=== PATIENT | female | born 1990 | race American Indian/Alaskan Native ===

== ENCOUNTER 2017-01-17 07:10 | Inpatient (IN) | payer MEDICAID ==
[2017-01-17] MEDS ORDERED: Misoprostol 50 MCG (1/2 of 100 MCG) Tab VAG ONE ×2 (07:55→17:45)
[2017-01-17] MEDS ORDERED: fentaNYL 100 MCG/2 ML SDV IVPUSH PRN (08:06)
[2017-01-17] MEDS ORDERED: Acetaminophen 325 MG Tab PO PRN ×2 (08:06→23:44)
[2017-01-17] MEDS ORDERED: Sodium Chloride 0.9% 10 ML Syringe FLUSH PRN (08:06)
[2017-01-17] MEDS ORDERED: Ondansetron 4 MG Tab.DIS PO PRN (08:06)
--- NOTE | 2017-01-17 08:21 | PCM.LDHP ---
L&D History of Present Illness - General Date of Service: 01/17/17 (induction) Admit Problem/Dx: Patient Status Order with Admit Dx/Problem 01/17/17 08:06 Patient Status [ADT] Routine Admission Diagnosis/Problem Admission Diagnosis/Problem Source of Information: Patient History Limitations: Reports: No Limitations - History of Present Illness Introduction:: This 26 year old who is 41 1 /7 weeks gestation presents for induction post dates. Has had minimal cares, missed several visits. Tested pos for THC in the first trimester. Lans: GBS neg ABO A pos Rubella immune HIV negative UDS negative today HGB 12.2., PLT 367 - Related Data Allergies/Adverse Reactions: Allergies Allergy/AdvReac Type Severity Reaction Status Date / Time codeine Allergy Hives Verified 06/21/16 18:56 Home Medications: Home Meds PNV95/Ferrous Fumarate/FA [ Vitamin Tablet] 1 tab PO DAILY 06/21/16 [ History] Past Medical History - Past Health History Medical/Surgical History: Denies Medical/Surgical History [employer] History: Reports: , Other (See Below) : 6 Para: 1 LMP (Approximate): (KAREN 01/09/17) Other OB/BYN History: D&C x 3 - Infectious Disease History Infectious Disease History: Reports: Chicken Pox - Past Surgical History Female Surgical History: Reports: D&C Social & Family History - Tobacco Use Smoking Status *Q: Never Smoker Second Hand Smoke Exposure: No - Caffeine Use Caffeine Use: Reports: Coffee - Recreational Drug Use Recreational Drug Use: No - Living Situation & Occupation Living situation: Reports: , with Family H&P Review of Systems - Review of Systems: Review Of Systems: See Below General: Reports: No Symptoms HEENT: Reports: No Symptoms Pulmonary: Reports: No Symptoms Cardiovascular: Reports: No Symptoms Gastrointestinal: Reports: No Symptoms Genitourinary: Reports: No Symptoms Musculoskeletal: Reports: No Symptoms Skin: Reports: No Symptoms Psychiatric: Reports: No Symptoms Neurological: Reports: No Symptoms Hematologic/Lymphatic: Reports: No Symptoms Immunologic: Reports: No Symptoms L&D Exam - Exam Exam: See Below - Vital Signs Weight: 172 lb 2.896 oz - OB Specific Fundal Height In cm: 39 Movement: Active Heart Tones: Present Heart Tones per Min: 145 Heart Rate (FHR) Variability: Moderate (6-25 bmp) Presentation: Vertex Estimated Weight: 7 pounds - Barry Score Barry Score Cervix Position: Posterior Barry Score Consistency: Soft Barry Score Effacement: 51-70% Barry Score Dilation: 1-2 cm Barry Score 's Station: -1 ,0 Barry Score Total: 7 - Exam General: Alert, Oriented HEENT: PERRLA, Conjunctiva Clear, EACs Clear, EOMI, Hearing Intact, Mucosa Moist & [place], Posterior Pharynx Clear, Pupils Equal, Pupils Reactive, TMs Clear Neck: Supple, Trachea Midline Lungs: Clear to Auscultation, Normal Respiratory Effort Cardiovascular: Regular Rate, Regular Rhythm Abdomen: Soft, Pelvis Stable Rectal Exam: Normal Exam Genitourinary: Normal external exam, Cervical dilitation, Enlarged uterus Back Exam: Normal Inspection, Full Range of Motion Extremities: Normal Inspection Skin: Warm, Dry, Intact Neurological: Cranial Nerves Intact, Reflexes Equal Bilateral Psychiatric: Alert, Normal Affect, Normal Mood - Patient Data Lab Results last 24 hrs: Laboratory Results - last 24 hr 01/17/17 01/17/17 01/17/17 Range/Units 07:21 07:26 07:26 WBC 10.9 (4.5-11.0) K/uL RBC 4.45 (3.30-5.50) M/uL Hgb 12.2 (12.0-15.0) g/dL Hct 36.4 (36.0-48.0) % MCV 82 (80-98) fL MCH 27 (27-31) pg MCHC 34 (32-36) % Plt Count 367 (150-400) K/uL Urine Color Yellow Urine Appearance Clear Urine pH 7.0 (4.5-8.0) Ur Specific [place] 1.005 L (1.008-1.030) Urine Protein Negative (NEGATIVE) mg/dL Urine Glucose (UA) Normal (NEGATIVE) mg/dL Urine Ketones Negative (NEGATIVE) mg/dL Urine Occult Blood Negative (NEGATIVE) Urine Nitrite Negative (NEGATIVE) Urine Bilirubin Negative (NEGATIVE) Urine Urobilinogen Normal (NORMAL) mg/dL Ur Leukocyte Esterase Negative (NEGATIVE) Urine RBC 0-5 (0-5) Urine WBC 0-5 (0-5) Ur Epithelial Cells Many Amorphous Sediment Not seen Urine Bacteria Not seen Urine Mucus Not seen Urine Opiates Screen Negative (NEGATIVE) Ur Oxycodone Screen Negative (NEGATIVE) Urine Methadone Screen Negative (NEGATIVE) Ur Propoxyphene Screen Negative (NEGATIVE) Ur Barbiturates Screen Negative (NEGATIVE) Ur Tricyclics Screen Negative (NEGATIVE) Ur Phencyclidine Scrn Negative (NEGATIVE) Ur Amphetamine Screen Negative (NEGATIVE) U Methamphetamines Scrn Negative (NEGATIVE) Urine MDMA Screen Negative (NEGATIVE) U Benzodiazepines Scrn Negative (NEGATIVE) U Cocaine Metab Screen Negative (NEGATIVE) U Marijuana (THC) Screen Negative (NEGATIVE) Result Diagrams: 01/17/17 07:21 - Problem List (1) Currently SNOMED Code(s): 24110791 ICD Code: Z33.1 - STATE, INCIDENTAL Status: Acute Priority: High Current Visit: No Qualifiers: Weeks of gestation: 41 weeks Qualified Code(s): Z3A.41 - 41 weeks gestation of Problem List Initiated/Reviewed/Updated: Yes Orders Last 24hrs: Active Orders 24 hr Category Date Time Status Antiembolic Devices [RC] .Routine Care 01/17/17 08:09 Ordered Communication Order [RC] ASDIRECTED Care 01/17/17 08:06 Ordered Heart Tones [RC] PER UNIT ROUTINE Care 01/17/17 08:06 Ordered May Shower [RC] ASDIRECTED Care 01/17/17 08:06 Ordered Notify Provider Vital Signs [RC] PRN Care 01/17/17 08:06 Ordered Notify Provider [RC] PRN Care 01/17/17 08:06 Ordered Up ad Leann [RC] ASDIRECTED Care 01/17/17 08:06 Ordered VTE/DVT Education [RC] Click to Edit Care 01/17/17 08:09 Ordered Vital Signs [RC] PER UNIT ROUTINE Care 01/17/17 08:06 Ordered Regular Diet [DIET] Diet 01/17/17 Breakfast Ordered Acetaminophen [Tylenol] Med 01/17/17 08:06 Ordered 650 mg PO Q4H PRN Ondansetron [Zofran ODT] Med 01/17/17 08:06 Ordered 4 mg PO Q4H PRN Oxytocin/Normal Saline [Pitocin in NS 20 Units/1,000 ML Med 01/17/17 08:15 Ordered ] 1,000 ml IV TITRATE Sodium Chloride 0.9% [Saline Flush] Med 01/17/17 08:06 Ordered 10 ml FLUSH ASDIRECTED PRN fentaNYL [Sublimaze] Med 01/17/17 08:06 Ordered 100 mcg IVPUSH Q1H PRN DVT/VTE Prophylaxis Reflex [OM.PC] Routine Oth 01/17/17 08:06 Ordered Saline Lock Insert [OM.PC] Routine Oth 01/17/17 08:06 Ordered Resuscitation Status Routine Resus Stat 01/17/17 08:06 Ordered Medication Orders Acetaminophen (Tylenol) 650 mg PO Q4H PRN PRN Reason: Pain (Mild 1-3) and fever Fentanyl (Sublimaze) 100 mcg IVPUSH Q1H PRN PRN Reason: Pain (moderate 4-6) Oxytocin/Sodium Chloride (Pitocin In Ns 20 Units/1,000 Ml) 1,000 mls @ 6 mls/ hr IV TITRATE FROILAN; 2 MUNITS/MIN PRN Reason: Protocol Ondansetron HCl (Zofran Odt) 4 mg PO Q4H PRN PRN Reason: Nausea/Vomiting Sodium Chloride (Saline Flush) 10 ml FLUSH ASDIRECTED PRN PRN Reason: Keep Vein Open Assessment/Plan Comment:: 01/17/17 26 year old 41 1/7 weeks gestation presents for induction post dates misoprostol 50 mcg vaginally this morning, may repeat at noon. reactive NST this morning Labs: GBS negative, UDS negative, Rubella immune, HIV negative,ABO A pos HGB 12.2, PLT 367 planning vaginal delivery she would like to do this without an epidural, so plan is for IV medication and tub Her significant other has to care for the 3 year old son and she may be by herself today
[2017-01-17] MEDS ORDERED: Lidocaine 1% 50 ML MDV ONE (11:09)
[2017-01-17] MEDS ORDERED: Naloxone 0.4 MG/ML SDV ONE (11:09)
[2017-01-17] MEDS ORDERED: Misoprostol 25 MCG (1/4 of 100 MCG) Tab ONE (12:17)
--- NOTE | 2017-01-17 12:29 | PCM.PNLD ---
Labor Progress Note - VS & Meds Vital Signs: Last Vital Signs Temp 97.5 F 01/17/17 11:25 Pulse 68 01/17/17 11:25 Resp 18 01/17/17 11:25 BP 121/72 01/17/17 11:25 Pulse Ox Active Medications: Current Medications Acetaminophen (Tylenol) 650 mg PO Q4H PRN PRN Reason: Pain (Mild 1-3) and fever Fentanyl (Sublimaze) 100 mcg IVPUSH Q1H PRN PRN Reason: Pain (moderate 4-6) Oxytocin/Sodium Chloride (Pitocin In Ns 20 Units/1,000 Ml) 20 unit in 1,000 mls @ 6 mls/hr IV TITRATE FROILAN; 2 MUNITS/MIN PRN Reason: Protocol Misoprostol (Cytotec) 25 mcg VAG ONETIME FROILAN Ondansetron HCl (Zofran Odt) 4 mg PO Q4H PRN PRN Reason: Nausea/Vomiting Sodium Chloride (Saline Flush) 10 ml FLUSH ASDIRECTED PRN PRN Reason: Keep Vein Open Discontinued Medications Oxytocin/Sodium Chloride (Pitocin In Ns 20 Units/1,000 Ml) Confirm Administered Dose 20 unit in 1,000 mls @ as directed .ROUTE .STK-MED ONE Stop: 01/17/17 11:10 Lidocaine HCl (Xylocaine 1%) Confirm Administered Dose 100 ml .ROUTE .STK-MED ONE Stop: 01/17/17 11:10 Misoprostol (Cytotec) 50 mcg VAG ONETIME ONE Stop: 01/17/17 07:56 Last Admin: 01/17/17 08:00 Dose: 50 mcg Misoprostol (Cytotec) Confirm Administered Dose 25 mcg .ROUTE .STK-MED ONE Stop: 01/17/17 12:18 Naloxone HCl (Narcan) Confirm Administered Dose 0.4 mg .ROUTE .STK-MED ONE Stop: 01/17/17 11:10 - Uterine Contractions Uterine Monitoring Mode: External [place] Contraction Frequency (min): 2.5-4.5 Contraction Duration (sec): 60-80 Contraction Intensity: Mild Uterine Resting Tone: Soft - Monitoring Heart Rate (FHR) Baseline: 140 Heart Rate (FHR) Variability: Moderate (6-25 bmp) Accelerations: Present, 15x15 Decelerations: None - Vaginal Exam Dilation (cm): 2 Effacement (Percent): 50 Station: 0 Cervical Position: Posterior Sterile Vaginal Exam Performed By: Jazmin Bentley Vaginal Exam Comment: placed cytotec vag. - Labor Progress (Free Text) Labor Progress: 01/17/17 no cervical change lorraine some continue up and about.
[2017-01-17] MEDS ORDERED: Misoprostol 25 MCG (1/4 of 100 MCG) Tab VAG ONE (12:30)
[2017-01-17] MEDS ORDERED: Misoprostol 50 MCG (1/2 of 100 MCG) Tab ONE (17:32)
--- NOTE | 2017-01-17 17:43 | PCM.PNLD ---
Labor Progress Note - VS & Meds Vital Signs: Last Vital Signs Temp 96.2 F 01/17/17 14:20 Pulse 67 01/17/17 14:20 Resp 18 01/17/17 16:00 BP 118/77 01/17/17 16:00 Pulse Ox Active Medications: Current Medications Acetaminophen (Tylenol) 650 mg PO Q4H PRN PRN Reason: Pain (Mild 1-3) and fever Fentanyl (Sublimaze) 100 mcg IVPUSH Q1H PRN PRN Reason: Pain (moderate 4-6) Oxytocin/Sodium Chloride (Pitocin In Ns 20 Units/1,000 Ml) 20 unit in 1,000 mls @ 6 mls/hr IV TITRATE FROILAN; 2 MUNITS/MIN PRN Reason: Protocol Misoprostol (Cytotec) 50 mcg VAG ONETIME FROILAN Ondansetron HCl (Zofran Odt) 4 mg PO Q4H PRN PRN Reason: Nausea/Vomiting Sodium Chloride (Saline Flush) 10 ml FLUSH ASDIRECTED PRN PRN Reason: Keep Vein Open Discontinued Medications Oxytocin/Sodium Chloride (Pitocin In Ns 20 Units/1,000 Ml) Confirm Administered Dose 20 unit in 1,000 mls @ as directed .ROUTE .STK-MED ONE Stop: 01/17/17 11:10 Last Admin: 01/17/17 12:32 Dose: Not Given Lidocaine HCl (Xylocaine 1%) Confirm Administered Dose 100 ml .ROUTE .STK-MED ONE Stop: 01/17/17 11:10 Misoprostol (Cytotec) 50 mcg VAG ONETIME ONE Stop: 01/17/17 07:56 Last Admin: 01/17/17 08:00 Dose: 50 mcg Misoprostol (Cytotec) 25 mcg VAG ONETIME ONE Stop: 01/17/17 12:31 Last Admin: 01/17/17 12:20 Dose: 25 mcg Misoprostol (Cytotec) Confirm Administered Dose 25 mcg .ROUTE .STK-MED ONE Stop: 01/17/17 12:18 Last Admin: 01/17/17 12:30 Dose: Not Given Misoprostol (Cytotec) Confirm Administered Dose 50 mcg .ROUTE .STK-MED ONE Stop: 01/17/17 17:33 Naloxone HCl (Narcan) Confirm Administered Dose 0.4 mg .ROUTE .STK-MED ONE Stop: 01/17/17 11:10 - Uterine Contractions Uterine Monitoring Mode: External [place] Contraction Frequency (min): unable to determine Contraction Duration (sec): 60-100 Contraction Intensity: Mild to Moderate Uterine Resting Tone: Soft - Monitoring Heart Rate (FHR) Baseline: 140 Heart Rate (FHR) Variability: Moderate (6-25 bmp) Accelerations: Present, 15x15 Decelerations: None - Vaginal Exam Dilation (cm): 3 Effacement (Percent): 50 Station: 0 Cervical Position: Posterior Sterile Vaginal Exam Performed By: Jazmin Bentley Vaginal Exam Comment: placed cytotec vag. - Labor Progress (Free Text) Labor Progress: contractions are becoming stronger, not much for cervical change. Baseline FHT 140's CE 3-50-0 repeat 50 mcg misoprostol vaginally. May use pitocin to augment if needed.
--- NOTE | 2017-01-17 21:24 | PCM.PNLD ---
Labor Progress Note - VS & Meds Vital Signs: Last Vital Signs Temp 97.1 F 01/17/17 19:30 Pulse 72 01/17/17 19:30 Resp 20 01/17/17 19:30 BP 139/80 01/17/17 19:30 Pulse Ox 98 01/17/17 19:30 Active Medications: Current Medications Acetaminophen (Tylenol) 650 mg PO Q4H PRN PRN Reason: Pain (Mild 1-3) and fever Fentanyl (Sublimaze) 100 mcg IVPUSH Q1H PRN PRN Reason: Pain (moderate 4-6) Last Admin: 01/17/17 21:03 Dose: 100 mcg Oxytocin/Sodium Chloride (Pitocin In Ns 20 Units/1,000 Ml) 20 unit in 1,000 mls @ 6 mls/hr IV TITRATE FROILAN; 2 MUNITS/MIN PRN Reason: Protocol Ondansetron HCl (Zofran Odt) 4 mg PO Q4H PRN PRN Reason: Nausea/Vomiting Sodium Chloride (Saline Flush) 10 ml FLUSH ASDIRECTED PRN PRN Reason: Keep Vein Open Discontinued Medications Oxytocin/Sodium Chloride (Pitocin In Ns 20 Units/1,000 Ml) Confirm Administered Dose 20 unit in 1,000 mls @ as directed .ROUTE .STK-MED ONE Stop: 01/17/17 11:10 Last Admin: 01/17/17 12:32 Dose: Not Given Lidocaine HCl (Xylocaine 1%) Confirm Administered Dose 100 ml .ROUTE .STK-MED ONE Stop: 01/17/17 11:10 Misoprostol (Cytotec) 50 mcg VAG ONETIME ONE Stop: 01/17/17 07:56 Last Admin: 01/17/17 08:00 Dose: 50 mcg Misoprostol (Cytotec) 25 mcg VAG ONETIME ONE Stop: 01/17/17 12:31 Last Admin: 01/17/17 12:20 Dose: 25 mcg Misoprostol (Cytotec) Confirm Administered Dose 25 mcg .ROUTE .STK-MED ONE Stop: 01/17/17 12:18 Last Admin: 01/17/17 12:30 Dose: Not Given Misoprostol (Cytotec) Confirm Administered Dose 50 mcg .ROUTE .STK-MED ONE Stop: 01/17/17 17:33 Last Admin: 01/17/17 17:39 Dose: Not Given Misoprostol (Cytotec) 50 mcg VAG ONETIME ONE Stop: 01/17/17 17:46 Last Admin: 01/17/17 17:35 Dose: 50 mcg Naloxone HCl (Narcan) Confirm Administered Dose 0.4 mg .ROUTE .STK-MED ONE Stop: 01/17/17 11:10 - Uterine Contractions Uterine Monitoring Mode: External [place] Contraction Frequency (min): 2.5-3 Contraction Duration (sec): 60-80 Contraction Intensity: Moderate Uterine Resting Tone: Soft - Monitoring Heart Rate (FHR) Baseline: 140 Heart Rate (FHR) Variability: Moderate (6-25 bmp) Accelerations: Present, 15x15 Decelerations: None Strip Review: Category I - Vaginal Exam Dilation (cm): 7 Effacement (Percent): 85 Station: 1 Cervical Position: Anterior Sterile Vaginal Exam Performed By: Opal Rodriguez Vaginal Exam Comment: active labor, SROM clear fluid - Labor Progress (Free Text) Labor Progress: 01/17/17 Progressing Planning for vaginal delivery
[2017-01-17] MEDS ORDERED: Docusate Sodium 100 MG Cap PO PRN (23:44)
[2017-01-17] MEDS ORDERED: Lanolin 100% Cream 40 GM Tube TOP PRN (23:44)
[2017-01-17] MEDS ORDERED: Ibuprofen 600 MG Tab PO PRN ×2 (23:44)
--- NOTE | 2017-01-17 23:58 | PCM.DEL ---
L & D Note - General Info Date of Service: 01/17/17 (delivery) Mother's Due Date: 01/09/17 - Delivery Note Labor: spontaneous Cervical Ripening Method: Misoprostil Delivery Outcome: Livebirth Infant Delivery Method: Spontaneous Vaginal Delivery Delivery Mode: Spontaneous Presentation: Right Occiput Posterior (ROP) Nuchal cord: present, reduced Anesthesia Type: None Amniotic Fluid Description: Clear Episiotomy Type: None Laceration: none Placenta: intact, spontaneous Cord: 3 vessels Estimated blood loss: 100 Resuscitation needed: No : bulb syringe, stimulated, warmed, blanket used Provider: Jazmin Bentley Score 1 min: 9 Score 5 min: 9 Score 10 min: 9 Second Stage Interventions: Reports: Encouragement Given, Pushing Effectively, Pushing, Feet in Foot Rests, Pushing, McRobert's Position Delivery Comments (Free Text/Narrative):: This 26year old G6 P now 2 who is 41 1/7 weeks gestation delivered a viable male infant over an intact perineum at 2320. 5 pushes! , ROP, nuchal cord times one manual reduced. Apgars 9,9,9. three vessel cord. Baby was placed on mother's abdomen where he cried spontaneously. He was dried and stimulated. The placenta was expressed spontaneously intact, katelyn. Active management of the third stage was used. No lacerations of the cervix, vagina, rectum or perineum were found. EBL 100cc Weight 8-10 Mother and baby to post and nursery in stable condition [place] to breast within the first hour of life. First stage 3493-6987 Second stage 225- 2320 third stage 0460-4044 Induction Criteria - Barry Score Barry Score Dilation: 1-2 cm Barry Score Effacement: 40-50% Barry Score 's Station: -1 ,0 Barry Score Consistency: Soft Barry Score Cervix Position: Posterior Barry Score Total: 6 Barry Score Presenting Part: Reports: Cephalic - Induction Gestational Age >/= 39 wks: Yes Estimated pelvis: Reports: Adequate Reassuring monitoring strip: Yes Absence of tachy systole: Yes - General Info Date of Service: 01/17/17 Admission Dx/Problem (Free Text): Patient Status Order with Admit Dx/Problem 01/17/17 08:06 Patient Status [ADT] Routine Admission Diagnosis/Problem Admission Diagnosis/Problem Functional Status: Reports: pain controlled - Review of Systems General: Reports: No Symptoms HEENT: Reports: no symptoms Pulmonary: Reports: no symptoms Cardiovascular: Reports: No Symptoms Gastrointestinal: Reports: No symptoms Genitourinary: Reports: no symptoms Musculoskeletal: Reports: no symptoms Skin: Reports: no symptoms Neurological: Reports: No Symptoms Psychiatric: Reports: no symptoms - Patient Data Vitals - most recent: Last Vital Signs Temp 97.1 F 01/17/17 19:30 Pulse 72 01/17/17 19:30 Resp 20 01/17/17 19:30 BP 139/80 01/17/17 19:30 Pulse Ox 98 01/17/17 19:30 Weight - most recent: 172 lb 2.896 oz Lab Results last 24 hrs: Laboratory Results - last 24 hr 01/17/17 01/17/17 01/17/17 Range/Units 07:21 07:26 07:26 WBC 10.9 (4.5-11.0) K/uL RBC 4.45 (3.30-5.50) M/uL Hgb 12.2 (12.0-15.0) g/dL Hct 36.4 (36.0-48.0) % MCV 82 (80-98) fL MCH 27 (27-31) pg MCHC 34 (32-36) % Plt Count 367 (150-400) K/uL Urine Color Yellow Urine Appearance Clear Urine pH 7.0 (4.5-8.0) Ur Specific [place] 1.005 L (1.008-1.030) Urine Protein Negative (NEGATIVE) mg/dL Urine Glucose (UA) Normal (NEGATIVE) mg/dL Urine Ketones Negative (NEGATIVE) mg/dL Urine Occult Blood Negative (NEGATIVE) Urine Nitrite Negative (NEGATIVE) Urine Bilirubin Negative (NEGATIVE) Urine Urobilinogen Normal (NORMAL) mg/dL Ur Leukocyte Esterase Negative (NEGATIVE) Urine RBC 0-5 (0-5) Urine WBC 0-5 (0-5) Ur Epithelial Cells Many Amorphous Sediment Not seen Urine Bacteria Not seen Urine Mucus Not seen Urine Opiates Screen Negative (NEGATIVE) Ur Oxycodone Screen Negative (NEGATIVE) Urine Methadone Screen Negative (NEGATIVE) Ur Propoxyphene Screen Negative (NEGATIVE) Ur Barbiturates Screen Negative (NEGATIVE) Ur Tricyclics Screen Negative (NEGATIVE) Ur Phencyclidine Scrn Negative (NEGATIVE) Ur Amphetamine Screen Negative (NEGATIVE) U Methamphetamines Scrn Negative (NEGATIVE) Urine MDMA Screen Negative (NEGATIVE) U Benzodiazepines Scrn Negative (NEGATIVE) U Cocaine Metab Screen Negative (NEGATIVE) U Marijuana (THC) Screen Negative (NEGATIVE) Med Orders - Current: Current Medications Acetaminophen (Tylenol) 650 mg PO Q4H PRN PRN Reason: Pain (Mild 1-3) and fever Fentanyl (Sublimaze) 100 mcg IVPUSH Q1H PRN PRN Reason: Pain (moderate 4-6) Last Admin: 01/17/17 21:03 Dose: 100 mcg Oxytocin/Sodium Chloride (Pitocin In Ns 20 Units/1,000 Ml) 20 unit in 1,000 mls @ 6 mls/hr IV TITRATE FROILAN; 2 MUNITS/MIN PRN Reason: Protocol Ondansetron HCl (Zofran Odt) 4 mg PO Q4H PRN PRN Reason: Nausea/Vomiting Sodium Chloride (Saline Flush) 10 ml FLUSH ASDIRECTED PRN PRN Reason: Keep Vein Open Discontinued Medications Oxytocin/Sodium Chloride (Pitocin In Ns 20 Units/1,000 Ml) Confirm Administered Dose 20 unit in 1,000 mls @ as directed .ROUTE .STK-MED ONE Stop: 01/17/17 11:10 Last Admin: 01/17/17 12:32 Dose: Not Given Lidocaine HCl (Xylocaine 1%) Confirm Administered Dose 100 ml .ROUTE .STK-MED ONE Stop: 01/17/17 11:10 Misoprostol (Cytotec) 50 mcg VAG ONETIME ONE Stop: 01/17/17 07:56 Last Admin: 01/17/17 08:00 Dose: 50 mcg Misoprostol (Cytotec) 25 mcg VAG ONETIME ONE Stop: 01/17/17 12:31 Last Admin: 01/17/17 12:20 Dose: 25 mcg Misoprostol (Cytotec) Confirm Administered Dose 25 mcg .ROUTE .STK-MED ONE Stop: 01/17/17 12:18 Last Admin: 01/17/17 12:30 Dose: Not Given Misoprostol (Cytotec) Confirm Administered Dose 50 mcg .ROUTE .STK-MED ONE Stop: 01/17/17 17:33 Last Admin: 01/17/17 17:39 Dose: Not Given Misoprostol (Cytotec) 50 mcg VAG ONETIME ONE Stop: 01/17/17 17:46 Last Admin: 01/17/17 17:35 Dose: 50 mcg Naloxone HCl (Narcan) Confirm Administered Dose 0.4 mg .ROUTE .STK-MED ONE Stop: 01/17/17 11:10 - Exam General: alert, oriented HEENT: Pupils equal, Pupils reactive, EOMI, Mucous membr. moist/pink Neck: supple Lungs: Clear to auscultation, Normal respiratory effort Cardiovascular: Regular Rate, Regular Rhythm Abdomen: soft, no tenderness, no distension (Female) Exam: Normal External Exam, Normal Speculum Exam, Normal Bimanual Exam Back Exam: Normal Inspection, Full Range of Motion Skin: warm, dry, intact Wound/Incisions: healing well Neurological: no new focal deficit Psy/Mental Status: alert, normal affect, normal mood - Problem List & Annotations (1) Currently SNOMED Code(s): 34993935 Code(s): Z33.1 - STATE, INCIDENTAL Status: Acute Priority: High Current Visit: Yes Qualifiers: Weeks of gestation: 41 weeks Qualified Code(s): Z3A.41 - 41 weeks gestation of (2) () SNOMED Code(s): 653948256 Code(s): Z78.9 - OTHER SPECIFIED HEALTH STATUS Status: Acute Current Visit: Yes (3) Normal labor and delivery SNOMED Code(s): 89344326, 133639624 Code(s): O80 - ENCOUNTER FOR FULL-TERM UNCOMPLICATED DELIVERY Status: Acute Current Visit: Yes (4) Elective induction of labor planned SNOMED Code(s): 723362885 Code(s): AGG6451 - Status: Acute Current Visit: Yes - Problem List Review Problem List Initiated/Reviewed/Updated: Yes - My Orders Last 24 Hours: My Active Orders 01/17/17 08:06 Communication Order [RC] ASDIRECTED May Shower [RC] ASDIRECTED Notify Provider Vital Signs [RC] PRN Notify Provider [RC] PRN Up ad Leann [RC] ASDIRECTED Vital Signs [RC] PER UNIT ROUTINE Acetaminophen [Tylenol] 650 mg PO Q4H PRN Ondansetron [Zofran ODT] 4 mg PO Q4H PRN Sodium Chloride 0.9% [Saline Flush] 10 ml FLUSH ASDIRECTED PRN fentaNYL [Sublimaze] 100 mcg IVPUSH Q1H PRN DVT/VTE Prophylaxis Reflex [OM.PC] Routine Saline Lock Insert [OM.PC] Routine Resuscitation Status Routine 01/17/17 08:09 Antiembolic Devices [RC] .Routine VTE/DVT Education [RC] Click to Edit 01/17/17 08:15 Oxytocin/Normal Saline [Pitocin in NS 20 Units/1,000 ML] 20 unit in 1,000 ml IV TITRATE 01/17/17 23:44 Acetaminophen [Tylenol Bulk Bottle] 325 mg PO Q4H PRN Docusate Sodium [Colace] 100 mg PO BID PRN Ibuprofen [Motrin Bulk Bottle] 600 mg PO Q6H PRN Ibuprofen [Motrin] 600 mg PO Q6H PRN Lanolin [Lansinoh HPA] 1 gm TOP ASDIRECTED PRN Assess Lochia [WOMSER] Per Unit Routine Assess Uterine Involution [WOMSER] Per Unit Routine 01/17/17 23:45 Vital Signs [RC] PFP Ice Therapy [OM.PC] Per Unit Routine Perineal Care [OM.PC] Per Unit Routine Sitz Bath [OM.PC] Per Unit Routine 01/17/17 23:46 Peripheral IV Discontinue [OM.PC] Routine 01/17/17 Breakfast Regular Diet [DIET] 01/18/17 05:11 CBC WITH AUTO DIFF [HEME] AM - Assessment Assessment:: 01/17/17 26 year old without complications Male infant, breast feeding induction for post dates - Plan Plan:: 01/17/17 26 year old 41 1/7 weeks gestation presents for induction post dates misoprostol 50 mcg vaginally this morning, may repeat at noon. reactive NST this morning Labs: GBS negative, UDS negative, Rubella immune, HIV negative,ABO A pos HGB 12.2, PLT 367 planning vaginal delivery she would like to do this without an epidural, so plan is for IV medication and tub Her significant other has to care for the 3 year old son and she may be by herself today 01/17/17 Routine cares support 24-48 hour stay may use LAMINE medications
[2017-01-18] MEDS ORDERED: Acetaminophen 325 MG Tab, 50 Tab Bulk Bottle PO PRN (02:34)
[2017-01-18] MEDS ORDERED: Ibuprofen 200 MG Tab, 24 Tab Bulk Bottle PO PRN (02:37)
--- NOTE | 2017-01-18 08:58 | PCM.PNPP ---
- General Info Date of Service: 01/18/17 (PPD 1) Admission Dx/Problem (Free Text): Patient Status Order with Admit Dx/Problem 01/17/17 08:06 Patient Status [ADT] Routine Admission Diagnosis/Problem Admission Diagnosis/Problem Functional Status: Reports: pain controlled - Review of Systems General: Reports: No Symptoms HEENT: Reports: no symptoms Pulmonary: Reports: no symptoms Cardiovascular: Reports: No Symptoms Gastrointestinal: Reports: No symptoms Genitourinary: Reports: no symptoms Musculoskeletal: Reports: hand pain (right hand carpal tunnel symptoms, chronic but worse since IV was in that hand yesterday) Skin: Reports: no symptoms Neurological: Reports: No Symptoms Psychiatric: Reports: no symptoms - General Info Date of Service: 01/18/17 - Patient Data Vital Signs - most recent: Last Vital Signs Temp 98.4 F 01/18/17 02:11 Pulse 64 01/18/17 02:11 Resp 18 01/18/17 02:11 BP 110/53 L 01/18/17 02:11 Pulse Ox 96 01/18/17 02:11 Weight - most recent: 172 lb 2.896 oz I&O - last 24 hours: Intake & Output 01/17/17 01/18/17 01/18/17 22:59 06:59 14:59 Intake Total 400 2240 Balance 400 2240 Lab Results - last 24 hrs: Laboratory Results - last 24 hr 01/18/17 Range/Units 05:47 WBC 14.9 H (4.5-11.0) K/uL RBC 4.27 (3.30-5.50) M/uL Hgb 11.9 L (12.0-15.0) g/dL Hct 35.1 L (36.0-48.0) % MCV 82 (80-98) fL MCH 28 (27-31) pg MCHC 34 (32-36) % Plt Count 340 (150-400) K/uL Neut % (Auto) 86 H (36-66) % Lymph % (Auto) 9 L (24-44) % [place] % (Auto) 5 (2-6) % Eos % (Auto) 0 L (2-4) % Baso % (Auto) 0 (0-1) % Med Orders - Current: Current Medications Acetaminophen (Tylenol) 650 mg PO Q4H PRN PRN Reason: Pain (Mild 1-3) and fever Acetaminophen (Tylenol) 325 - 650 mg PO Q4H PRN PRN Reason: Pain Acetaminophen (Tylenol Bulk Bottle) 325 - 650 mg PO Q4H PRN PRN Reason: Pain Last Admin: 01/18/17 03:04 Dose: 325 mg Docusate Sodium (Colace) 100 mg PO BID PRN PRN Reason: Constipation Emollient Ointment (Lansinoh Hpa) 0 gm TOP ASDIRECTED PRN PRN Reason: Sore Nipples Fentanyl (Sublimaze) 100 mcg IVPUSH Q1H PRN PRN Reason: Pain (moderate 4-6) Last Admin: 01/17/17 21:03 Dose: 100 mcg Oxytocin/Sodium Chloride (Pitocin In Ns 20 Units/1,000 Ml) 20 unit in 1,000 mls @ 6 mls/hr IV TITRATE FROILAN; 2 MUNITS/MIN PRN Reason: Protocol Last Titration: 01/18/17 00:00 Dose: 125 mls/hr Ibuprofen (Motrin) 600 mg PO Q6H PRN PRN Reason: Pain Ibuprofen (Motrin Bulk Bottle) 200 - 600 mg PO Q6H PRN PRN Reason: Pain Last Admin: 01/18/17 03:05 Dose: 600 mg Ondansetron HCl (Zofran Odt) 4 mg PO Q4H PRN PRN Reason: Nausea/Vomiting Sodium Chloride (Saline Flush) 10 ml FLUSH ASDIRECTED PRN PRN Reason: Keep Vein Open Discontinued Medications Oxytocin/Sodium Chloride (Pitocin In Ns 20 Units/1,000 Ml) Confirm Administered Dose 20 unit in 1,000 mls @ as directed .ROUTE .STK-MED ONE Stop: 01/17/17 11:10 Last Admin: 01/17/17 12:32 Dose: Not Given Ibuprofen (Motrin) 600 mg PO Q6H PRN PRN Reason: mild pain or fever Lidocaine HCl (Xylocaine 1%) Confirm Administered Dose 100 ml .ROUTE .STK-MED ONE Stop: 01/17/17 11:10 Last Admin: 01/18/17 02:05 Dose: Not Given Misoprostol (Cytotec) 50 mcg VAG ONETIME ONE Stop: 01/17/17 07:56 Last Admin: 01/17/17 08:00 Dose: 50 mcg Misoprostol (Cytotec) 25 mcg VAG ONETIME ONE Stop: 01/17/17 12:31 Last Admin: 01/17/17 12:20 Dose: 25 mcg Misoprostol (Cytotec) Confirm Administered Dose 25 mcg .ROUTE .STK-MED ONE Stop: 01/17/17 12:18 Last Admin: 01/17/17 12:30 Dose: Not Given Misoprostol (Cytotec) Confirm Administered Dose 50 mcg .ROUTE .STK-MED ONE Stop: 01/17/17 17:33 Last Admin: 01/17/17 17:39 Dose: Not Given Misoprostol (Cytotec) 50 mcg VAG ONETIME ONE Stop: 01/17/17 17:46 Last Admin: 01/17/17 17:35 Dose: 50 mcg Naloxone HCl (Narcan) Confirm Administered Dose 0.4 mg .ROUTE .STK-MED ONE Stop: 01/17/17 11:10 Last Admin: 01/18/17 02:05 Dose: Not Given - Interaction Infant Disposition, : [place] in Room with Family Interaction: Holding Feeding: Breastfed Infant; Nursed Well Support Person: Significant Other - Recovery Exam Fundal Tone: Firm Fundal Level: 1 Fingerbreadths Below Umbilicus Fundal Placement: Midline Lochia Amount: Moderate Lochia Color: Rubra/Red Perineum Description: Intact, Minimal Bruising/Swelling Episiotomy/Laceration: None Urinary Elimination: Voided Other Urinary Elimination, : due to void. - Exam General: alert, oriented HEENT: Pupils equal Neck: supple Lungs: Clear to auscultation, Normal respiratory effort Cardiovascular: Regular Rate, Regular Rhythm Abdomen: bowel sounds present, soft, no tenderness, no distension Extremities: no edema Skin: warm, dry, intact Wound/Incisions: healing well Neurological: no new focal deficit Psy/Mental Status: alert, normal affect, normal mood - Problem List & Annotations (1) Currently SNOMED Code(s): 68755479 Code(s): Z33.1 - STATE, INCIDENTAL Status: Acute Priority: High Current Visit: Yes Qualifiers: Weeks of gestation: 41 weeks Qualified Code(s): Z3A.41 - 41 weeks gestation of (2) () SNOMED Code(s): 710350625 Code(s): Z78.9 - OTHER SPECIFIED HEALTH STATUS Status: Acute Current Visit: Yes (3) Normal labor and delivery SNOMED Code(s): 55492475, 505865551 Code(s): O80 - ENCOUNTER FOR FULL-TERM UNCOMPLICATED DELIVERY Status: Acute Current Visit: Yes (4) Elective induction of labor planned SNOMED Code(s): 214174161 Code(s): IDT1992 - Status: Acute Current Visit: Yes (5) Carpal tunnel syndrome of right wrist SNOMED Code(s): 53334950, 111809736 Code(s): G56.01 - CARPAL TUNNEL SYNDROME, RIGHT UPPER LIMB Status: Acute Current Visit: Yes - Problem List Review Problem List Initiated/Reviewed/Updated: Yes - My Orders Last 24 Hours: My Active Orders 01/17/17 08:06 May Shower [RC] ASDIRECTED Notify Provider Vital Signs [RC] PRN Up ad Leann [RC] ASDIRECTED Vital Signs [RC] PER UNIT ROUTINE Acetaminophen [Tylenol] 650 mg PO Q4H PRN Ondansetron [Zofran ODT] 4 mg PO Q4H PRN Sodium Chloride 0.9% [Saline Flush] 10 ml FLUSH ASDIRECTED PRN fentaNYL [Sublimaze] 100 mcg IVPUSH Q1H PRN DVT/VTE Prophylaxis Reflex [OM.PC] Routine Saline Lock Insert [OM.PC] Routine Resuscitation Status Routine 01/17/17 08:09 Antiembolic Devices [RC] .Routine VTE/DVT Education [RC] Click to Edit 01/17/17 08:15 Oxytocin/Normal Saline [Pitocin in NS 20 Units/1,000 ML] 20 unit in 1,000 ml IV TITRATE 01/17/17 23:44 Acetaminophen [Tylenol] 325 - 650 mg PO Q4H PRN Docusate Sodium [Colace] 100 mg PO BID PRN Ibuprofen [Motrin] 600 mg PO Q6H PRN Lanolin [Lansinoh HPA] 0 gm TOP ASDIRECTED PRN Assess Lochia [WOMSER] Per Unit Routine Assess Uterine Involution [WOMSER] Per Unit Routine 01/17/17 23:45 Ice Therapy [OM.PC] Per Unit Routine Perineal Care [OM.PC] Per Unit Routine Sitz Bath [OM.PC] Per Unit Routine 01/17/17 23:46 Peripheral IV Discontinue [OM.PC] Routine 01/17/17 Breakfast Regular Diet [DIET] 01/18/17 02:34 Acetaminophen [Tylenol Bulk Bottle] 325 - 650 mg PO Q4H PRN 01/18/17 02:37 Ibuprofen [Motrin Bulk Bottle] 200 - 600 mg PO Q6H PRN - Assessment Assessment:: 01/17/17 26 year old without complications Male , breast feeding induction for post dates 01/18/17 Doing well this morning HGB 11.9 this morning right hand painful, has carpal tunnel symptoms - Plan Plan:: 01/17/17 26 year old 41 1/7 weeks gestation presents for induction post dates misoprostol 50 mcg vaginally this morning, may repeat at noon. reactive NST this morning Labs: GBS negative, UDS negative, Rubella immune, HIV negative,ABO A pos HGB 12.2, PLT 367 planning vaginal delivery she would like to do this without an epidural, so plan is for IV medication and tub Her significant other has to care for the 3 year old son and she may be by herself today 01/17/17 Routine cares support 24-48 hour stay may use LAMINE medications 01/18/17 Continue routine cares Needs cock up splint right hand support breast feeding discharge tomorrow
--- NOTE | 2017-01-19 06:53 | PCM.PNPP ---
- General Info Date of Service: 01/19/17 (PPD 2 D/C) Admission Dx/Problem (Free Text): Patient Status Order with Admit Dx/Problem 01/17/17 08:06 Patient Status [ADT] Routine Admission Diagnosis/Problem Admission Diagnosis/Problem Functional Status: Reports: pain controlled - Review of Systems General: Reports: No Symptoms HEENT: Reports: no symptoms Pulmonary: Reports: no symptoms Cardiovascular: Reports: No Symptoms Gastrointestinal: Reports: No symptoms Genitourinary: Reports: no symptoms Musculoskeletal: Reports: no symptoms Skin: Reports: no symptoms Neurological: Reports: No Symptoms Psychiatric: Reports: no symptoms - General Info Date of Service: 01/19/17 - Patient Data Vital Signs - most recent: Last Vital Signs Temp 97.9 F 01/19/17 03:41 Pulse 74 01/19/17 03:41 Resp 16 01/19/17 03:41 BP 107/58 L 01/19/17 03:41 Pulse Ox 100 01/19/17 03:41 Weight - most recent: 202 lb 15.991 oz I&O - last 24 hours: Intake & Output 01/18/17 01/18/17 01/19/17 14:59 22:59 06:59 Intake Total 480 Balance 480 Med Orders - Current: Current Medications Acetaminophen (Tylenol) 650 mg PO Q4H PRN PRN Reason: Pain (Mild 1-3) and fever Acetaminophen (Tylenol) 325 - 650 mg PO Q4H PRN PRN Reason: Pain Acetaminophen (Tylenol Bulk Bottle) 325 - 650 mg PO Q4H PRN PRN Reason: Pain Last Admin: 01/18/17 03:04 Dose: 325 mg Docusate Sodium (Colace) 100 mg PO BID PRN PRN Reason: Constipation Emollient Ointment (Lansinoh Hpa) 0 gm TOP ASDIRECTED PRN PRN Reason: Sore Nipples Fentanyl (Sublimaze) 100 mcg IVPUSH Q1H PRN PRN Reason: Pain (moderate 4-6) Last Admin: 01/17/17 21:03 Dose: 100 mcg Oxytocin/Sodium Chloride (Pitocin In Ns 20 Units/1,000 Ml) 20 unit in 1,000 mls @ 6 mls/hr IV TITRATE FROILAN; 2 MUNITS/MIN PRN Reason: Protocol Last Titration: 01/18/17 00:00 Dose: 125 mls/hr Ibuprofen (Motrin) 600 mg PO Q6H PRN PRN Reason: Pain Ibuprofen (Motrin Bulk Bottle) 200 - 600 mg PO Q6H PRN PRN Reason: Pain Last Admin: 01/18/17 03:05 Dose: 600 mg Ondansetron HCl (Zofran Odt) 4 mg PO Q4H PRN PRN Reason: Nausea/Vomiting Sodium Chloride (Saline Flush) 10 ml FLUSH ASDIRECTED PRN PRN Reason: Keep Vein Open Discontinued Medications Oxytocin/Sodium Chloride (Pitocin In Ns 20 Units/1,000 Ml) Confirm Administered Dose 20 unit in 1,000 mls @ as directed .ROUTE .STK-MED ONE Stop: 01/17/17 11:10 Last Admin: 01/17/17 12:32 Dose: Not Given Ibuprofen (Motrin) 600 mg PO Q6H PRN PRN Reason: mild pain or fever Lidocaine HCl (Xylocaine 1%) Confirm Administered Dose 100 ml .ROUTE .STK-MED ONE Stop: 01/17/17 11:10 Last Admin: 01/18/17 02:05 Dose: Not Given Misoprostol (Cytotec) 50 mcg VAG ONETIME ONE Stop: 01/17/17 07:56 Last Admin: 01/17/17 08:00 Dose: 50 mcg Misoprostol (Cytotec) 25 mcg VAG ONETIME ONE Stop: 01/17/17 12:31 Last Admin: 01/17/17 12:20 Dose: 25 mcg Misoprostol (Cytotec) Confirm Administered Dose 25 mcg .ROUTE .STK-MED ONE Stop: 01/17/17 12:18 Last Admin: 01/17/17 12:30 Dose: Not Given Misoprostol (Cytotec) Confirm Administered Dose 50 mcg .ROUTE .STK-MED ONE Stop: 01/17/17 17:33 Last Admin: 01/17/17 17:39 Dose: Not Given Misoprostol (Cytotec) 50 mcg VAG ONETIME ONE Stop: 01/17/17 17:46 Last Admin: 01/17/17 17:35 Dose: 50 mcg Naloxone HCl (Narcan) Confirm Administered Dose 0.4 mg .ROUTE .STK-MED ONE Stop: 01/17/17 11:10 Last Admin: 01/18/17 02:05 Dose: Not Given - Interaction Infant Disposition, : [place] in Room with Family Infant Interaction: Holding Infant Feeding: Breastfed Infant; Nursed Well Support Person: Significant Other - Recovery Exam Fundal Tone: Firm Fundal Level: At Umbilicus Fundal Placement: Midline Lochia Amount: Moderate Lochia Color: Rubra/Red Perineum Description: Intact, Minimal Bruising/Swelling Episiotomy/Laceration: None Urinary Elimination: Voided Other Urinary Elimination, : due to void. - Exam General: alert, oriented HEENT: Pupils equal Neck: supple Lungs: Clear to auscultation, Normal respiratory effort Cardiovascular: Regular Rate, Regular Rhythm Abdomen: bowel sounds present, soft, no tenderness, no distension Extremities: no edema Skin: warm, dry, intact Wound/Incisions: healing well Neurological: no new focal deficit Psy/Mental Status: alert, normal affect, normal mood - Problem List & Annotations (1) Currently SNOMED Code(s): 15694574 Code(s): Z33.1 - STATE, INCIDENTAL Status: Acute Priority: High Current Visit: Yes Qualifiers: Weeks of gestation: 41 weeks Qualified Code(s): Z3A.41 - 41 weeks gestation of (2) () SNOMED Code(s): 007555458 Code(s): Z78.9 - OTHER SPECIFIED HEALTH STATUS Status: Acute Current Visit: Yes (3) Normal labor and delivery SNOMED Code(s): 68826031, 727855614 Code(s): O80 - ENCOUNTER FOR FULL-TERM UNCOMPLICATED DELIVERY Status: Acute Current Visit: Yes (4) Elective induction of labor planned SNOMED Code(s): 912957322 Code(s): APQ0308 - Status: Acute Current Visit: Yes (5) Carpal tunnel syndrome of right wrist SNOMED Code(s): 32852208, 949248657 Code(s): G56.01 - CARPAL TUNNEL SYNDROME, RIGHT UPPER LIMB Status: Acute Current Visit: Yes - Problem List Review Problem List Initiated/Reviewed/Updated: Yes - My Orders Last 24 Hours: My Active Orders 01/18/17 08:58 Brace [Immobilizer] [RC] ASDIRECTED - Assessment Assessment:: 01/17/17 26 year old without complications Male infant, breast feeding induction for post dates 01/18/17 Doing well this morning HGB 11.9 this morning right hand painful, has carpal tunnel symptoms 01/19/17 Doing well light bleeding mild cramping well wants to go home - Plan Plan:: 01/17/17 26 year old 41 1/7 weeks gestation presents for induction post dates misoprostol 50 mcg vaginally this morning, may repeat at noon. reactive NST this morning Labs: GBS negative, UDS negative, Rubella immune, HIV negative,ABO A pos HGB 12.2, PLT 367 planning vaginal delivery she would like to do this without an epidural, so plan is for IV medication and tub Her significant other has to care for the 3 year old son and she may be by herself today 01/17/17 Routine cares support 24-48 hour stay may use LAMINE medications 01/18/17 Continue routine cares Needs cock up splint right hand support breast feeding discharge tomorrow 01/19/17 home today see me in 6 weeks for post visit
[2017-01-19 07:41] VITALS: BP 98/53
== END 2017-01-19 13:10 | disposition home or self-care (01) | DRG 775 ==
LOC: JP.OB 07:10 → OBSVTOIN 23:20 → JP.MS 23:40
PROVIDERS: ADMIT Nurse Practitioner Family; ATTEND Nurse Practitioner Family
PROC: 10E0XZZ Delivery of Products of Conception, External Approach (ICD-10-PCS; principal; 2017-01-17)
PROC: 3E0P7GC Introduction of Other Therapeutic Substance into Female Reproductive, Via Natural or Artificial Opening (ICD-10-PCS; 2017-01-17)
DX: O48.0 Post-term pregnancy (principal); O99.321 Drug use complicating pregnancy, first trimester; Z3A.41 41 weeks gestation of pregnancy; O69.81X0 Labor and delivery complicated by cord around neck, without compression, not applicable or unspecified; Z37.0 Single live birth; Z88.5 Allergy status to narcotic agent; F12.90 Cannabis use, unspecified, uncomplicated; O09.30 Supervision of pregnancy with insufficient antenatal care, unspecified trimester
CPT/HCPCS: 36415; 80305; 81001; 85025; 85027; A9270-GY; J2590; J3010

== ENCOUNTER 2017-06-30 18:29 | Emergency (ER) | payer MEDICAID ==
[2017-06-30 18:52] VITALS: BP 129/73
--- NOTE | 2017-06-30 19:00 | EDM.PDOC ---
ED HPI GENERAL MEDICAL PROBLEM - General Chief Complaint: Genitourinary Problem Stated Complaint: BLADDER INFECTION? Time Seen by Provider: 06/30/17 18:50 Source of Information: Reports: Patient History Limitations: Reports: No Limitations - History of Present Illness INITIAL COMMENTS - FREE TEXT/NARRATIVE: 27-year-old female who has had increased urination and dysuria for the past 2-3 days. She started feeling generalized malaise today and chills. Some back discomfort but she has chronic back pain. She has no fever currently. 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 Below) Other OB/BYN History: D&C x 3 - Infectious Disease History Infectious Disease History: Reports: Chicken Pox - Past Surgical History Female Surgical History: Reports: D&C Social & Family History - Tobacco Use Smoking Status *Q: Never Smoker Used Tobacco, but Quit: Yes Month Tobacco Last Used: july Second Hand Smoke Exposure: No - Caffeine Use Caffeine Use: Reports: Coffee, Soda, Tea Caffeine Use Comment: 3 cups tea/day - Recreational Drug Use Recreational Drug Use: No - Living Situation & Occupation Living situation: Reports: , with Family ED ROS GENERAL - Review of Systems Review Of Systems: See Below Constitutional: Reports: Malaise. Denies: Fever, Chills HEENT: Reports: No Symptoms Respiratory: Denies: Shortness of Breath, Cough Cardiovascular: Denies: Chest Pain GI/Abdominal: Denies: Abdominal Pain, Nausea Musculoskeletal: Reports: Back Pain, Muscle Pain Skin: Reports: No Symptoms Neurological: Denies: Headache ED EXAM, RENAL/ - Physical Exam Exam: See Below Exam Limited By: No Limitations General Appearance: Alert, No Apparent Distress Eye Exam: Bilateral Eye: Normal Inspection Respiratory/Chest: No Respiratory Distress, Lungs Clear Back Exam: CVA Tenderness (R), CVA Tenderness (L) (She reacts to discomfort with palpation or percussion over the entire back, no focal tenderness) Course - Vital Signs Last Recorded V/S: Last Vital Signs Temp 97.3 F 06/30/17 18:50 Pulse 108 H 06/30/17 18:50 Resp 16 06/30/17 18:50 BP 129/73 06/30/17 18:50 Pulse Ox 96 06/30/17 18:50 - Orders/Labs/Meds Orders: Active Orders 24 hr Category Date Time Status CULTURE URINE [RM] Stat Lab 06/30/17 19:08 Received Labs: Laboratory Tests 06/30/17 Range/Units 18:43 Urine Color Yellow Urine Appearance Cloudy Urine pH 5.0 (4.5-8.0) Ur Specific [place] 1.025 (1.008-1.030) Urine Protein Trace (NEGATIVE) mg/dL Urine Glucose (UA) Normal (NEGATIVE) mg/dL Urine Ketones Negative (NEGATIVE) mg/dL Urine Occult Blood Moderate (NEGATIVE) Urine Nitrite Negative (NEGATIVE) Urine Bilirubin Negative (NEGATIVE) Urine Urobilinogen Normal (NORMAL) mg/dL Ur Leukocyte Esterase Large (NEGATIVE) Urine RBC 5-10 H (0-5) Urine WBC Semi-packed H (0-5) Ur Epithelial Cells Few Amorphous Sediment Not seen Urine Bacteria Many Urine Mucus Not seen - Re-Assessments/Exams Free Text/Narrative Re-Assessment/Exam: 06/30/17 19:15 UA shows packed WBCs and many bacteria. A culture was initiated. The patient was placed on Bactrim DS twice a day for at least 5 days, and also given naproxen to take for muscle aches. She will return if not improving satisfactorily after 2-3 days, and we will contact her with culture results of her medication changes needed. She'll return sooner if worsening such as vomiting the medication or increased fever or pain. Departure - Departure Time of Disposition: 19:21 Disposition: Home, Self-Care 01 Condition: Good Clinical Impression: UTI, Urinary tract infectious disease - Discharge Information Instructions: Urinary Tract Infection, Adult, [id number] Referrals: PCP,None [Primary Care Provider] - Forms: ED Department Discharge Care Plan Goals: Take antibiotic twice daily for the next 5 days. You should start to feel better fairly rapidly over the next several days. Use pain medication as prescribed if needed. Return if worsening such as vomiting the medication, increase fever or worsening pain. - My Orders Last 24 Hours: My Active Orders 06/30/17 19:08 CULTURE URINE [] Stat - Assessment/Plan Last 24 Hours: My Active Orders 06/30/17 19:08 CULTURE URINE [] Stat
== END 2017-06-30 19:21 | disposition home or self-care (01) ==
LOC: JP.ED 18:29
DX: N39.0 Urinary tract infection, site not specified (principal); Z88.5 Allergy status to narcotic agent
CPT/HCPCS: 81001; 87086; 87088; 87186; 99284

== ENCOUNTER 2018-04-13 01:35 | Observation (INO) | payer MEDICAID ==
[2018-04-13] MEDS ORDERED: Ketorolac 30 MG/ML SDV IVPUSH ONE (02:01)
[2018-04-13] MEDS ORDERED: Ketorolac 30 MG/ML SDV ONE (02:10)
--- NOTE | 2018-04-13 05:10 | EDM.PDOC ---
ED HPI GENERAL MEDICAL PROBLEM - General Chief Complaint: Abdominal Pain Stated Complaint: ABDOMEN PAIN Time Seen by Provider: 04/13/18 02:00 Source of Information: Reports: Patient, EMS History Limitations: Reports: No Limitations - History of Present Illness INITIAL COMMENTS - FREE TEXT/NARRATIVE: Sudden onset severe epigastric and ruq abdominal pain a few hours ago. patient received 1 gm Dilaudid by ems. Very difficult to get any history from her. She seems alert but acts like she's in so much pain that she can barely speak at all. 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 3 - Infectious Disease History Infectious Disease History: Reports: Chicken Pox - Past Surgical History Female Surgical History: Reports: D&C Social & Family History - Tobacco Use Smoking Status *Q: Current Every Day Smoker Years of Tobacco use: 10 Packs/Tins Daily: 0.2 - Caffeine Use Caffeine Use: Reports: Coffee Caffeine Use Comment: 3 cups tea/day - Recreational Drug Use Recreational Drug Use: No - Living Situation & Occupation Living situation: Reports: , with Family ED ROS GENERAL - Review of Systems Review Of Systems: Unable To Obtain (very difficult to get any history from her) ED EXAM, GENERAL - Physical Exam Exam: See Below Exam Limited By: Physical Impairment General Appearance: Severe Distress, Obese Eye Exam: Bilateral Eye: Normal Inspection Throat/Mouth: Normal Oropharynx Head: Atraumatic Neck: Normal Inspection Respiratory/Chest: Lungs Clear Cardiovascular: Regular Rate, Rhythm, No Murmur GI/Abdominal: Soft, Tender (epigastric and ruq), Abnormal Bowel Sounds ( decreased) Back Exam: Normal Inspection Extremities: Normal Inspection Neurological: Alert (mildly sedated at most ) Skin Exam: Warm Course - Vital Signs Last Recorded V/S: Last Vital Signs Temp 36.1 C 04/13/18 01:50 Pulse 80 04/13/18 01:50 Resp 25 H 04/13/18 01:50 BP 111/67 04/13/18 01:50 Pulse Ox 100 04/13/18 01:50 - Orders/Labs/Meds Orders: Active Orders 24 hr Category Date Time Status Abdomen Ltd [US] Stat Exams 04/13/18 02:02 Taken Labs: Laboratory Tests 04/13/18 04/13/18 04/13/18 Range/Units 02:10 02:10 02:10 WBC 8.0 (4.5-11.0) K/uL RBC 4.75 (3.30-5.50) M/uL Hgb 13.4 D (12.0-15.0) g/dL Hct 40.0 (36.0-48.0) % MCV 84 (80-98) fL MCH 28 (27-31) pg MCHC 34 (32-36) % Plt Count 357 (150-400) K/uL Neut % (Auto) 54 (36-66) % Lymph % (Auto) 32 (24-44) % [place] % (Auto) 7 H (2-6) % Eos % (Auto) 6 H (2-4) % Baso % (Auto) 1 (0-1) % Sodium 141 (140-148) mmol/L Potassium 3.0 L (3.6-5.2) mmol/L Chloride 104 (100-108) mmol/L Carbon Dioxide 28 (21-32) mmol/L Anion Gap 12.0 (5.0-14.0) mmol/L BUN 8 D (7-18) mg/dL Creatinine 1.0 D (0.6-1.0) mg/dL Est Cr Clr Drug Dosing 68.02 mL/min Estimated GFR (MDRD) > 60 (>60) Glucose 126 H (74-106) mg/dL Calcium 8.8 D (8.5-10.1) mg/dL Total Bilirubin 0.2 D (0.2-1.0) mg/dL AST 108 H D (15-37) U/L ALT 80 H (12-78) U/L Alkaline Phosphatase 117 H D (46-116) U/L Total Protein 6.7 (6.4-8.2) g/dL Albumin 3.2 L (3.4-5.0) g/dL Globulin 3.5 (2.3-3.5) g/dL Albumin/Globulin Ratio 0.9 L (1.2-2.2) Amylase 22 L (25-115) U/L Lipase 184 (73-393) U/L Meds: Medications Discontinued Medications Generic Name Dose Route Start Last Admin Trade Name Adry PRN Reason Stop Dose Admin Ketorolac Tromethamine 30 mg 04/13/18 02:01 04/13/18 02:15 Toradol IVPUSH 04/13/18 02:02 30 mg ONETIME ONE Administration - Radiology Interpretation Free Text/Narrative:: US shows multiple gallstones. Possibly minimal GB wall thickening. CBD normal - Re-Assessments/Exams Free Text/Narrative Re-Assessment/Exam: 04/13/18 05:11 She was given Toradol 30 mg IV. Labs noted. Mildly elevated LFT's. This lady seems to be in significant pain and I don't think she could be managed outpatient. Discussed with Dr Deutsch who suggested outpatient management but I didn't feel like it would be appropriate in this particular patient. Departure - Departure Time of Disposition: 05:14 Disposition: Admitted As Inpatient 68 Condition: Fair Clinical Impression: Acute abdominal pain in right upper quadrant - Discharge Information - My Orders Last 24 Hours: My Active Orders 04/13/18 02:02 Xceive [US] Stat - Assessment/Plan Last 24 Hours: My Active Orders 04/13/18 02:02 Abdomen [employer] [US] Stat
[2018-04-13] MEDS ORDERED: Scopolamine 1.5 MG Transdermal Patch TOP PRN (05:59)
[2018-04-13] MEDS ORDERED: Ondansetron 4 MG/2 ML SDV IV PRN (05:59)
[2018-04-13] MEDS ORDERED: Promethazine 12.5 MG in Sodium Chloride 0.9% 50 ML IV PRN (06:00)
[2018-04-13] MEDS ORDERED: Sodium Chloride 0.9% 1,000 ML IV SCH (06:00)
[2018-04-13] MEDS ORDERED: Promethazine 25 MG in Sodium Chloride 0.9% 50 ML IV PRN (06:01)
[2018-04-13] MEDS ORDERED: diphenhydrAMINE 50 MG/ML SDV IVPUSH PRN ×2 (06:02→07:09)
[2018-04-13] MEDS ORDERED: diphenhydrAMINE 25 MG Cap PO PRN ×2 (06:03→07:10)
[2018-04-13] MEDS ORDERED: Nicotine 14 MG/24 Hr Patch TRDERM PRN (06:04)
[2018-04-13] MEDS ORDERED: fentaNYL 100 MCG/2 ML SDV IV PRN ×2 (06:06→07:10)
[2018-04-13] MEDS ORDERED: Morphine 4 MG/ML Syringe IVPUSH PRN (07:12)
[2018-04-13] MEDS ORDERED: Dexamethasone 4 MG/ML SDV ONE (08:12)
[2018-04-13] MEDS ORDERED: Succinylcholine 200 MG/10 ML MDV ONE (08:12)
[2018-04-13] MEDS ORDERED: Glycopyrrolate 0.2 MG/ML 5 ML MDV ONE (08:12)
[2018-04-13] MEDS ORDERED: Rocuronium 50 MG/5 ML Vial ONE (08:12)
[2018-04-13] MEDS ORDERED: fentaNYL 250 MCG/5 ML SDV ONE (08:12)
[2018-04-13] MEDS ORDERED: Propofol 200 MG/20 ML SDV ONE (08:12)
[2018-04-13] MEDS ORDERED: Neostigmine Methylsulfate 1 MG/ML 5 ML Syringe ONE (08:12)
[2018-04-13] MEDS ORDERED: Ondansetron 4 MG/2 ML SDV ONE (08:12)
[2018-04-13] MEDS ORDERED: Dextrose 5%-Lactated Ringers 1,000 ML IV SCH (08:15)
[2018-04-13] MEDS ORDERED: Bupivacaine 0.5% 50 ML MDV ONE (08:28)
[2018-04-13] MEDS ORDERED: Lidocaine 1% with EPINEPHrine 1:100,000 50 ML MDV ONE (08:28)
[2018-04-13] MEDS: Potassium Chloride 20 MEQ, Lidocaine 1% 2 ML in Sodium Chloride 0.9% 100 ML IV SCH ×3 (08:51→13:19)
[2018-04-13] MEDS ORDERED: cefOXitin 2 GM in Sodium Chloride 0.9% 50 ML IV ONE (12:00)
[2018-04-13] MEDS ORDERED: hydrOXYzine HCl 100 MG/2 ML SDV IM ONE (12:40)
[2018-04-13] MEDS ORDERED: fentaNYL 100 MCG/2 ML SDV IVPUSH ONE (12:40)
[2018-04-13] MEDS ORDERED: fentaNYL/Normal Saline 600 MCG/30 ML PCA Vial IV PRN (13:00)
[2018-04-13] MEDS ORDERED: Naloxone 0.4 MG/ML SDV IV PRN (13:02)
[2018-04-13] MEDS ORDERED: Ondansetron 4 MG/2 ML SDV IVPUSH PRN (14:00)
[2018-04-13] MEDS: Acetaminophen/HYDROcodone 325-5 MG Tab PO PRN ×2 (14:22→17:30)
[2018-04-13 16:22] VITALS: BP 106/56
--- NOTE | 2018-04-13 17:40 | PCM.DCSUM1 ---
Discharge Summary - Hospital Course Free Text/Narrative:: This 27 year old female was brought in to the ER by ambulance last night with severe epigastric and right upper quadrant abdominal pain. Abdominal ultrasound showed cholelithiasis with a normal appearing common duct. Her LFT's were slightly elevated with a normal bilirubin, elevated AST and ALT and alkaline phosphatase of 117 with 116 being normal. She received Mefoxin 2 grams IV and underwent a laparoscopic cholecystectomy today. She currently is eating and wants to go home. She is discharged at this time in good condition. Diagnosis: Stroke: No - Discharge Data Discharge Date: 04/13/18 Discharge Disposition: Home, Self-Care 01 Condition: Good - Discharge Diagnosis/Problem(s) (1) Acute abdominal pain in right upper quadrant SNOMED Code(s): 836551411, [id number] ICD Code: R10.11 - RIGHT UPPER QUADRANT PAIN Status: Acute Current Visit : Yes - Patient Summary/Data Operative Procedure(s) Performed: Laparoscopic cholecystectomy Hospital Course: See above narrative. - Patient Instructions Diet: Usual Diet as Tolerated Activity: No Strenuous Activities (For about two weeks. ) Driving, Other: Do not drive while taking narcotic pain medication. Showering/Bathing: Shower in AM Notify Provider of: Fever, Increased Pain, Swelling and Redness, Nausea and/or Vomiting - Discharge Plan *PRESCRIPTION DRUG MONITORING PROGRAM REVIEWED*: No *COPY OF PRESCRIPTION DRUG MONITORING REPORT IN PATIENT AURELIO: No Prescriptions/Med Rec: Acetaminophen/HYDROcodone [Riverside 325-5 MG] 1 tab PO Q3H PRN #30 tablet PRN Reason: PAIN Home Medications: Home Meds Vit W-Ca,Fe,FA(<1 mg) [ Vitamins] 1 each PO DAILY 03/17/18 [ History] Acetaminophen/HYDROcodone [Riverside 325-5 MG] 1 tab PO Q3H PRN #30 tablet 04/13/18 [Rx] Forms: ED Department Discharge Referrals: PCP,None [Primary Care Provider] - Sd Carolina MD [Physician] - (See me in [facility] in about two weeks. ) - Discharge Summary/Plan Comment DC Time >30 min.: Yes Discharge Summary/Plan Comment: See above narrative. - Patient Data Vitals - Most Recent: Last Vital Signs Temp 96.6 F 04/13/18 16:22 Pulse 55 L 04/13/18 16:22 Resp 18 04/13/18 16:22 BP 106/56 L 04/13/18 16:22 Pulse Ox 97 04/13/18 16:22 Weight - Most Recent: 187 lb 15.987 oz I&O - Last 24 hours: Intake & Output 04/13/18 04/13/18 04/13/18 06:59 14:59 22:59 Intake Total 224 Balance 224 Lab Results - Last 24 hrs: Laboratory Results - last 24 hr 04/13/18 04/13/18 04/13/18 Range/Units 02:10 02:10 02:10 WBC 8.0 (4.5-11.0) K/uL RBC 4.75 (3.30-5.50) M/uL Hgb 13.4 D (12.0-15.0) g/dL Hct 40.0 (36.0-48.0) % MCV 84 (80-98) fL MCH 28 (27-31) pg MCHC 34 (32-36) % Plt Count 357 (150-400) K/uL Neut % (Auto) 54 (36-66) % Lymph % (Auto) 32 (24-44) % [place] % (Auto) 7 H (2-6) % Eos % (Auto) 6 H (2-4) % Baso % (Auto) 1 (0-1) % Sodium 141 (140-148) mmol/L Potassium 3.0 L (3.6-5.2) mmol/L Chloride 104 (100-108) mmol/L Carbon Dioxide 28 (21-32) mmol/L Anion Gap 12.0 (5.0-14.0) mmol/L BUN 8 D (7-18) mg/dL Creatinine 1.0 D (0.6-1.0) mg/dL Est Cr Clr Drug Dosing 68.02 mL/min Estimated GFR (MDRD) > 60 (>60) Glucose 126 H (74-106) mg/dL Calcium 8.8 D (8.5-10.1) mg/dL Total Bilirubin 0.2 D (0.2-1.0) mg/dL AST 108 H D (15-37) U/L ALT 80 H (12-78) U/L Alkaline Phosphatase 117 H D (46-116) U/L Total Protein 6.7 (6.4-8.2) g/dL Albumin 3.2 L (3.4-5.0) g/dL Globulin 3.5 (2.3-3.5) g/dL Albumin/Globulin Ratio 0.9 L (1.2-2.2) Amylase 22 L (25-115) U/L Lipase 184 (73-393) U/L RAN Results - Last 24 hrs: Microbiology 04/13/18 12:30 Gram Stain - Preliminary Gallbladder Fluid - Bile Med Orders - Current: Current Medications Hydrocodone Bitart/Acetaminophen ([place] 325-5 Mg) 1 tab PO Q3H PRN PRN Reason: PAIN Last Admin: 04/13/18 17:30 Dose: 1 tab Fentanyl Citrate (Fentanyl In Ns 20 Mcg/Ml 30 Ml Entertainment Dancer) 0 mcg IV ASDIRECTED PRN; Protocol PRN Reason: PAIN Dextrose/Lactated Ringer's (Dextrose 5%-Lactated Ringers) 1,000 mls @ 125 mls/ hr IV ASDIRECTED FROILAN Last Admin: 04/13/18 08:56 Dose: 125 mls/hr Naloxone HCl (Narcan) 0.1 mg IV ASDIRECTED PRN PRN Reason: decreased respiratory rate Ondansetron HCl (Zofran) 4 mg IVPUSH Q4H PRN PRN Reason: Nausea/Vomiting Discontinued Medications Bupivacaine HCl (Marcaine 0.5%) Confirm Administered Dose 50 ml .ROUTE .STK-MED ONE Stop: 04/13/18 08:29 Last Admin: 04/13/18 11:47 Dose: 20 ml Dexamethasone (Dexamethasone) Confirm Administered Dose 4 mg .ROUTE .STK-MED ONE Stop: 04/13/18 08:13 Diphenhydramine HCl (Benadryl) 0 mg IVPUSH Q4H PRN PRN Reason: Itching Diphenhydramine HCl (Benadryl) 0 mg PO Q4H PRN PRN Reason: Itching Diphenhydramine HCl (Benadryl) 25 - 50 mg IVPUSH Q4H PRN PRN Reason: Itching Diphenhydramine HCl (Benadryl) 25 - 50 mg PO Q4H PRN PRN Reason: Itching Fentanyl (Sublimaze) 0 mcg IV Q1H PRN PRN Reason: Pain Fentanyl (Sublimaze) 10 - 30 mcg IV Q1H PRN PRN Reason: Pain Fentanyl (Sublimaze) Confirm Administered Dose 250 mcg .ROUTE .STK-MED ONE Stop: 04/13/18 08:13 Fentanyl (Sublimaze) 100 mcg IVPUSH ONETIME ONE Stop: 04/13/18 12:41 Last Admin: 04/13/18 12:44 Dose: 100 mcg Glycopyrrolate (Robinul) Confirm Administered Dose 1 mg .ROUTE .STK-MED ONE Stop: 04/13/18 08:13 Hydroxyzine HCl (Vistaril) 100 mg IM ONETIME ONE Stop: 04/13/18 12:41 Last Admin: 04/13/18 12:45 Dose: 100 mg Sodium Chloride (Normal Saline) 1,000 mls @ 125 mls/hr IV ASDIRECTED [facility] Promethazine HCl 12.5 mg/ (Sodium Chloride) 50.5 mls @ 202 mls/hr IV Q8H PRN PRN Reason: Nausea Promethazine HCl 25 mg/ Sodium (Chloride) 51 mls @ 204 mls/hr IV Q8H PRN PRN Reason: Nausea Potassium Chloride 20 meq/Lidocaine HCl 2 ml/ Sodium Chloride 112 mls @ 56 mls/ hr IV Q2H [facility] Stop: 04/13/18 14:59 Last Admin: 04/13/18 13:19 Dose: 56 mls/hr Cefoxitin Sodium 2 gm/ Sodium (Chloride) 50 mls @ 100 mls/hr IV ONETIME ONE Stop: 04/13/18 12:29 Last Admin: 04/13/18 11:15 Dose: 100 mls/hr Ketorolac Tromethamine (Toradol) 30 mg IVPUSH ONETIME ONE Stop: 04/13/18 02:02 Last Admin: 04/13/18 02:15 Dose: 30 mg Ketorolac Tromethamine (Toradol) Confirm Administered Dose 30 mg .ROUTE .STK- MED ONE Stop: 04/13/18 02:11 Last Admin: 04/13/18 07:47 Dose: Not Given Lidocaine/Epinephrine (Xylocaine 1% With Epinephrine 1:100,000) Confirm Administered Dose 50 ml .ROUTE .STK-MED ONE Stop: 04/13/18 08:29 Last Admin: 04/13/18 11:47 Dose: 20 ml Morphine Sulfate (Morphine) 1 - 3 mg IVPUSH Q1H PRN PRN Reason: Pain Last Admin: 04/13/18 07:32 Dose: 3 mg Neostigmine Methylsulfate (Neostigmine) Confirm Administered Dose 5 mg .ROUTE .STK-MED ONE Stop: 04/13/18 08:13 Nicotine (Habitrol) 14 mg TRDERM Q24H PRN PRN Reason: Other Ondansetron HCl (Zofran) 4 mg IV Q8H PRN PRN Reason: Nausea Ondansetron HCl (Zofran) Confirm Administered Dose 4 mg .ROUTE .STK-MED ONE Stop: 04/13/18 08:13 Propofol (Diprivan 20 Ml) Confirm Administered Dose 200 mg .ROUTE .STK-MED ONE Stop: 04/13/18 08:13 Rocuronium Barnum (Zemuron) Confirm Administered Dose 50 mg .ROUTE .STK-MED ONE Stop: 04/13/18 08:13 Scopolamine (Transderm-Scop) 1.5 mg TOP Q72H PRN PRN Reason: Nausea Sodium Chloride (Normal Saline) 1,000 ml IRR .STK-MED ONE Stop: 04/13/18 11:49 Last Admin: 04/13/18 11:48 Dose: 1,000 ml Succinylcholine Chloride (Quelicin) Confirm Administered Dose 200 mg .ROUTE .STK -MED ONE Stop: 04/13/18 08:13
--- NOTE | 2018-04-16 08:25 | OR ---
DATE OF PROCEDURE: 04/13/2018 SURGEON: Sd Carolina MD PREOPERATIVE DIAGNOSES: Chronic cholecystitis with cholelithiasis. POSTOPERATIVE DIAGNOSES: Chronic cholecystitis with cholelithiasis. PROCEDURE PERFORMED: Laparoscopic cholecystectomy. ANESTHESIA: General endotracheal. INDICATION: This 27-year-old female was brought in by ambulance last night complaining of severe upper abdominal pain. She was in so much pain that she basically could not give a good history to the emergency room physician. She was admitted by Dr. Deutsch, who was going out of town, and he requested that I take over care. She had an abdominal ultrasound, which showed cholelithiasis. There was no evidence of acute cholecystitis yet. There was no ductal dilatation. Her liver functions were only slightly elevated. Her bilirubin was unremarkable. The patient's prior abdominal surgery consists of apparently exploratory laparoscopy in [place] to rule out, she says, an ectopic . She delivered a child four weeks ago. I counseled her for a laparoscopic cholecystectomy including risks and alternatives, and she gave her informed consent to proceed. DESCRIPTION OF PROCEDURE: After adequate general endotracheal anesthesia was obtained, the patient's abdomen was prepped and draped in the usual sterile fashion. The leg compression stockings were in place and used during the entire procedure. Time-out was held. An infraumbilical semicircular incision was made. Under direct vision, a 12-mm port was introduced into the abdomen through this incision, using the Optiview technique. The camera was introduced into the abdomen, and the abdomen was insufflated to a pressure of 20 mmHg with carbon dioxide. No evidence of intraabdominal injury was seen. Under direct vision, a 12-mm port was placed in the epigastrium and a 5-mm port was placed in the right lower quadrant. The patient did receive Toradol in the emergency room. She did have some minor bleeding at her trocar sites. The gallbladder was noted to be distended. There were no adhesions to it. It had a slight erythematous hue to it. The gallbladder was grasped. The cystic duct and arteries were dissected free. The duct was clipped up on the gallbladder and then three times proximally away from the common duct and divided between clips. The cystic duct was noted to be fairly short. The cystic artery was also clipped distally and a couple of times proximally and divided between clips. The gallbladder was then dissected free from the gallbladder bed using Bovie electrocautery. The gallbladder was placed in a sample retrieval bag and elevated up through the anterior abdominal wall via the epigastric port site. It was noted to contain multiple small stones, some of which spilled while we were taking it out. These were aspirated free up out of the abdomen. The gallbladder was cultured off the field. The epigastric port was reintroduced back in the abdomen. The gallbladder bed was irrigated and suctioned dry and all looked well. The fascial closure device was used to place an 0 Vicryl stitch in the epigastric fascial defect. The infraumbilical port was removed with a [id number] stitch of 0 Vicryl used to close this fascial defect. We then evacuated as much CO2 as we could from the 5-mm port site in the right lower quadrant and then this port was removed. Lidocaine 1% with epinephrine in a 50:50 mix with 0.5% Marcaine was infiltrated about all incisions. A 4-0 Vicryl using a subcuticular stitch was placed to approximate the skin of the incisions. Dermabond was applied. The anesthesia was reversed. She was extubated and brought to recovery room in a good condition. Sd Carolina MD /[id number]
== END 2018-04-13 18:11 | disposition home or self-care (01) ==
LOC: JP.ED 01:35 → JP.MS 03:50
PROVIDERS: ADMIT Surgery; ATTEND Surgery
DX: K80.10 Calculus of gallbladder with chronic cholecystitis without obstruction (principal); K21.9 Gastro-esophageal reflux disease without esophagitis; F17.210 Nicotine dependence, cigarettes, uncomplicated; Z79.899 Other long term (current) drug therapy; Z88.5 Allergy status to narcotic agent
CPT/HCPCS: 36415; 47562; 76705; 80053; 82150; 83690; 85025; 87070; 87075; 87205; 96365; 96366; 96375; 99285; A9270; G0378; J0330; J0694; J1100; J1885; J2270; J2405; J2704; J2710; J3010; J3410; J3480; J3490; J7030; J7042; J7050; 96367; 96374

== ENCOUNTER 2021-08-05 22:18 | Emergency (ER) | payer OTHER, BC, MEDICAID ==
[2021-08-05 22:31] VITALS: BP 121/70; PULSE 89
[2021-08-05] MEDS ORDERED: Bacitracin Oint 1 GM U/D Packet TOP ONE (22:34)
--- NOTE | 2021-08-05 22:59 | EDM.PDOC ---
ED HPI GENERAL MEDICAL PROBLEM - General Chief Complaint: Laceration Stated Complaint: CUT LEFT HAND Time Seen by Provider: 08/05/21 22:40 Source of Information: Reports: Patient, Family History Limitations: Reports: No Limitations - History of Present Illness INITIAL COMMENTS - FREE TEXT/NARRATIVE: 31-year-old female with a laceration to her left hand. She cut her hand while cutting vegetables about 3 hours ago. No other injury. 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 x 3 - Infectious Disease History Infectious Disease History: Reports: Chicken Pox - Past Surgical History Female Surgical History: Reports: D&C Social & Family History - Tobacco Use Tobacco Use Status *Q: Heavy Tobacco User Years of Tobacco use: 10 Packs/Tins Daily: 0.5 - Caffeine Use Caffeine Use: Reports: Coffee Caffeine Use Comment: 3 cups tea/day - Recreational Drug Use Recreational Drug Type: Reports: Marijuana/Hashish - Living Situation & Occupation Living situation: Reports: , with Family ED ROS GENERAL - Review of Systems Review Of Systems: See Below Constitutional: Denies: Fever, Chills Respiratory: Reports: No Symptoms Cardiovascular: Reports: No Symptoms GI/Abdominal: Reports: No Symptoms Neurological: Denies: Paresthesia (No distal paresthesias) Psychiatric: Reports: Anxiety (Very anxious about the procedure) ED EXAM, SKIN/RASH Exam: See Below Exam Limited By: No Limitations General Appearance: Alert, Anxious Head: Atraumatic Respiratory/Chest: No Respiratory Distress Neurological: Alert, Oriented Psychiatric: Anxious Skin: Warm, Dry, Other (There is a 3 cm laceration to the palmar surface of the left hand near the base of the index finger) Course - Vital Signs Last Recorded V/S: Last Vital Signs Temp 98.0 F 08/05/21 22:30 Pulse 89 08/05/21 22:30 Resp 18 08/05/21 22:30 BP 121/70 08/05/21 22:30 Pulse Ox 100 08/05/21 22:30 - Orders/Labs/Meds Meds: Medications Discontinued Medications Generic Name Dose Route Start Last Admin Trade Name Adry PRN Reason Stop Dose Admin Bacitracin 1 dose 08/05/21 22:34 08/05/21 22:38 Bacitracin Oint 1 Gm U/D Packet TOP 08/05/21 22:35 1 dose ONETIME ONE Administration Lidocaine HCl 5 ml 08/05/21 22:34 08/05/21 22:39 Lidocaine 1% 5 Ml Sdv INJECT 08/05/21 22:35 5 ml ONETIME ONE Administration - Re-Assessments/Exams Free Text/Narrative Re-Assessment/Exam: 08/05/21 22:57 The area was anesthetized with 1% lidocaine, cleansed thoroughly with saline and four 4-0 Ethilon sutures were used to close the wound. Topical bacitracin and a Band-Aid was applied, stitches can be removed on 13 August. Recheck sooner if concerns of infection or not healing satisfactorily. Departure - Departure Time of Disposition: 23:05 Disposition: Home, Self-Care 01 Clinical Impression: Laceration of left hand Qualifiers: Encounter type: initial encounter Foreign body presence: without foreign body Qualified Code(s): S61.412A - Laceration without foreign body of left hand, initial encounter - Discharge Information Instructions: Laceration Care, Adult Referrals: PCP,None [Primary Care Provider] - Forms: ED Department Discharge Care Plan Goals: Keep wound covered and clean while healing, increase activity as tolerated. Sutures can be removed in 8 days, 13 August. Recheck sooner if concerns of infection or not healing satisfactorily. Sepsis Event Note (ED) - Evaluation Sepsis Screening Result: No Definite Risk - Focused Exam Vital Signs: Vital Signs Temp Pulse Resp BP Pulse Ox 08/05/21 22:30 98.0 F 89 18 121/70 100
== END 2021-08-05 23:16 | disposition home or self-care (01) ==
LOC: JP.ED 22:18
DX: S61.412A Laceration without foreign body of left hand, initial encounter (principal); Z88.5 Allergy status to narcotic agent; Z72.0 Tobacco use; W26.8XXA Contact with other sharp object(s), not elsewhere classified, initial encounter
CPT/HCPCS: 12002; 99282-25